=== PATIENT | female | born 1955 ===

== ENCOUNTER 2022-04-26 12:30 | Inpatient (IN) | payer OTHER ==
[~2022-04-26 12:30] MED LIST: CILOSTAZOL50 MG PO; EZALLOR SPRINKL20 MG PO; PEPCID AC20 MG PO; ZESTRIL5 MG PO; ZETIA10 MG PO
[2022-05-03] MEDS ORDERED: VITAMIN D31250 MCG (11:49)
[2022-05-03] MEDS ORDERED: PEPCID40 MG (11:50)
[2022-05-05] MEDS ORDERED: HYOSCYAMINE0.125 M1 SL (15:01)
[2022-05-05] MEDS ORDERED: INTESTINEX680 M1 PO (15:02)
[2022-05-05] MEDS ORDERED: ULTRAM50 MG PO (15:02)
== END 2022-05-05 18:13 | disposition home or self-care (01) | DRG 331 ==
LOC: SURG 05-02 08:00 → O/R 05-02 08:00 → SURH 05-02 12:30 → SURG 05-02 16:15
PROVIDERS: ADMIT Surgery; ATTEND Surgery
PROC: 0DBP4ZZ Excision of Rectum, Percutaneous Endoscopic Approach (ICD-10-PCS; 2022-05-02)
PROC: 0DJD8ZZ Inspection of Lower Intestinal Tract, Via Natural or Artificial Opening Endoscopic (ICD-10-PCS; 2022-05-02)
PROC: 0DTN4ZZ Resection of Sigmoid Colon, Percutaneous Endoscopic Approach (ICD-10-PCS; principal; 2022-05-02 14:30)
DX: K57.32 Diverticulitis of large intestine without perforation or abscess without bleeding (principal); R19.4 Change in bowel habit; Z20.822 Contact with and (suspected) exposure to COVID-19